=== PATIENT | female | born 1995 | race Caucasian/White ===

== ENCOUNTER 2017-03-22 09:10 | Outpatient (RCR) | payer OTHER ==
[2017-03-21] MEDS: NS IV 1000 ML 1,000 ML IV SCH (14:59)
[2017-03-21 15:02] LABS: BASOPHILS % (AUTO) 0 % (0-10); EOSINOPHILS % (AUTO) 0 % (0-10); LYMPHOCYTES # (AUTO) 0.7 X 10^3 (1.0-4.0); LYMPHOCYTES % (AUTO) 6 % (12-44); MEAN CORPUSCULAR HEMOGLOBIN 30 PG (25-34); MEAN CORPUSCULAR HGB CONC 35 G/DL (32-36); MEAN CORPUSCULAR VOLUME 86 FL (80-99); MEAN PLATELET VOLUME 10.4 FL (7.4-10.4); MONOCYTES # (AUTO) 0.8 X 10^3 (0.0-1.0); MONOCYTES % (AUTO) 6 % (0-12); NEUTROPHILS # (AUTO) 11.1 X 10^3 (1.8-7.8); NEUTROPHILS % (AUTO) 88 % (42-75); PLATELET COUNT 203 10^3/uL (130-400); RED BLOOD COUNT 4.41 10^6/uL (4.35-5.85); RED CELL DISTRIBUTION WIDTH 12.1 % (10.0-14.5); WHITE BLOOD COUNT 12.6 10^3/uL (4.3-11.0)
[2017-03-21 15:08] VITALS: BP 102/68
[2017-03-21 15:19] LABS: BAND NEUTROPHILS 2 %; BASOPHILS % (MANUAL) 0 %; EOSINOPHILS % (MANUAL) 0 %; LYMPHOCYTES % (MANUAL) 5 %; NEUTROPHILS % (MANUAL) 92 %
[2017-03-21 15:21] LABS: ALANINE AMINOTRANSFERASE 12 U/L (0-55); ALBUMIN 4.2 G/DL (3.2-4.5); ANION GAP 11 MMOL/L (5-14); ASPARTATE AMINO TRANSFERASE 13 U/L (5-34); BILIRUBIN,TOTAL 1.7 MG/DL (0.1-1.0); BLOOD UREA NITROGEN 10 MG/DL (7-18); BUN/CREATININE RATIO 12; CARBON DIOXIDE 24 MMOL/L (21-32); CHLORIDE 101 MMOL/L (98-107); CREATININE SERUM 0.83 MG/DL (0.60-1.30); GFR ESTIMATED > 60; GLUCOSE 101 MG/DL (70-105); POTASSIUM 3.8 MMOL/L (3.6-5.0); SODIUM 136 MMOL/L (135-145); TOTAL PROTEIN 7.5 G/DL (6.4-8.2)
[2017-03-21 16:50] VITALS: BP 102/68
[~2017-03-22] VITALS: Ht 170.2 cm; Wt 65.8 kg
[2017-03-22 09:10] VITALS: BP 108/78
[~2017-03-22 09:10] MED LIST: ACETAMINOPHEN 325 MG TABLET/CAPLET (TYLENOL) PO ONE; APAP 325 MG/10.15 ML LIQ (TYLENOL) UDC PO ONE; BIRTH CONTROL PO; IBUPROFEN 600 MG (MOTRIN) TAB PO ONE; IBUPROFEN TABLET 200 MG TAB PO ONE; LEVOFLOXACIN 500 MG/100 ML IV 100 ML IV SCH
[2017-03-22] MEDS ORDERED: LEVOFLOXACIN 500 MG/100 ML IV 100 ML ONE (09:19)
[2017-03-22] MEDS ORDERED: NS IV 1000 ML 1,000 ML ONE (09:20)
[2017-03-22] MEDS: NS IV 1000 ML 1,000 ML IV SCH (09:36)
[2017-03-22] MEDS ORDERED: ONDANSETRON 4 MG/2 ML (SDV) Z0FRAN IVP ONE (10:15)
[2017-03-22] MEDS ORDERED: IBUPROFEN 600 MG (MOTRIN) TAB PO ONE (10:30)
[2017-03-22] MEDS ORDERED: IBUPROFEN TABLET 200 MG TAB PO ONE (10:31)
== END 2017-06-19 | disposition home or self-care (01) ==
LOC: SDC 09:10
PROVIDERS: ATTEND Nurse Practitioner Family
DX: N39.0 Urinary tract infection, site not specified (principal); R50.9 Fever, unspecified; E86.0 Dehydration
CPT/HCPCS: 36415; 80053; 85007; 85027; 96360; 96365; 96374

== ENCOUNTER → 2017-07-01 | Outpatient (CLI) | payer OTHER ==
[~2017-07-01] MED LIST changes: -ACETAMINOPHEN 325 MG TABLET/CAPLET (TYLENOL) PO ONE; -APAP 325 MG/10.15 ML LIQ (TYLENOL) UDC PO ONE; -IBUPROFEN 600 MG (MOTRIN) TAB PO ONE; -IBUPROFEN TABLET 200 MG TAB PO ONE; -LEVOFLOXACIN 500 MG/100 ML IV 100 ML IV SCH
--- NOTE | 2017-07-01 17:33 | Diagnostic Imaging Report ---
INDICATION: Positive test and vaginal bleeding. TECHNIQUE: Transabdominal and transvaginal ultrasound images of the pelvis are obtained. FINDINGS: The uterus measures 7.6 x 5.0 x 5.9 cm with normal endometrial thickness of 0.5 cm. The ovaries are within normal limits for size. There is no intrauterine or ectopic gestational sac appreciated. IMPRESSION: Endometrial thickness is 0.5 cm. No definite gestational sac or free pelvic fluid is identified. Dictated by: Dictated on workstation # [id number]
== END ==
LOC: RAD 16:09
PROVIDERS: ATTEND Nurse Practitioner Family
DX: N93.9 Abnormal uterine and vaginal bleeding, unspecified (principal)
CPT/HCPCS: 76801; 76817